=== PATIENT | male | born 1955 | race Caucasian/White ===

== ENCOUNTER 2020-12-11 13:04 | Emergency (ER) | payer MEDICARE ==
[~2020-12-11 13:04] MED LIST: AMARYL 2MG TABLE2 MG PO; ASPIRIN CHEWABL81 MG PO; BUPROPION HCL75 MG PO; CYANOCOBAL1000 MCG/1 INJ; GLUCOPHAGE1000 MG PO; IPRAT-ALBUT 0.5-3 ML INH; JANUVIA100 MG PO; LOPRESSOR50 MG PO; MONTELUKAST SOD10 MG PO; PLAVIX 75 MG TA75 MG PO; PROAIR HFA8.5 GM INH
[2020-12-11 15:02] LABS: HEMOGLOBIN 10.2 gm/dl (14.0-17.5); RED BLOOD COUNT 3.56 M/UL (4.20-5.50); WHITE BLOOD COUNT 9.7 K/UL (4.5-11.0)
[2020-12-11] MEDS ORDERED: OMNICEF 300 MG300 MG PO (17:29)
[2020-12-11] MEDS ORDERED: ERYTHROMYCIN O3.5 GM OU (17:29)
[2020-12-11] MEDS ORDERED: ZITHROMAX250 MG PO (17:29)
== END 2020-12-11 17:45 | disposition home or self-care (01) ==
LOC: ER1 13:04
PROVIDERS: Physician Assistant
DX: J18.9 Pneumonia, unspecified organism (principal); H10.9 Unspecified conjunctivitis; I25.10 Atherosclerotic heart disease of native coronary artery without angina pectoris; I10 Essential (primary) hypertension; E11.9 Type 2 diabetes mellitus without complications; J44.9 Chronic obstructive pulmonary disease, unspecified; F17.200 Nicotine dependence, unspecified, uncomplicated; Z99.81 Dependence on supplemental oxygen; Z88.2 Allergy status to sulfonamides; Z20.822 Contact with and (suspected) exposure to COVID-19
CPT/HCPCS: 0240U; 36415; 71045; 80053; 82550; 82553; 83874; 84484; 85025; 93005; 99284

== ENCOUNTER 2020-12-30 12:22 | Emergency (ER) | payer MEDICARE ==
[~2020-12-30 12:22] MED LIST changes: +ERYTHROMYCIN O3.5 GM OU; +OMNICEF 300 MG300 MG PO; +ZITHROMAX250 MG PO
[2020-12-30 13:17] LABS: HEMOGLOBIN 9.7 gm/dl (14.0-17.5); RED BLOOD COUNT 3.47 M/UL (4.20-5.50); WHITE BLOOD COUNT 9.8 K/UL (4.5-11.0)
[2020-12-30] MEDS ORDERED: LASIX40 MG PO ×2 (17:23→17:25)
[2020-12-30] MEDS ORDERED: ALBUTEROL2.5 MG/3 M INH (17:25)
== END 2020-12-30 18:27 | disposition home or self-care (01) ==
LOC: ER1 12:22
PROVIDERS: Physician Assistant
DX: I50.9 Heart failure, unspecified (principal); J44.9 Chronic obstructive pulmonary disease, unspecified; F17.200 Nicotine dependence, unspecified, uncomplicated; Z20.822 Contact with and (suspected) exposure to COVID-19; Z86.73 Personal history of transient ischemic attack (TIA), and cerebral infarction without residual deficits; Z95.1 Presence of aortocoronary bypass graft; Z88.8 Allergy status to other drugs, medicaments and biological substances; Z88.2 Allergy status to sulfonamides; Z79.82 Long term (current) use of aspirin; Z79.899 Other long term (current) drug therapy
CPT/HCPCS: 0240U; 36415; 71045; 80053; 82550; 82553; 83874; 83880; 84484; 85025; 93005; 96374; 96376; 99285; J1940

== ENCOUNTER → 2021-01-08 | Outpatient (CLI) | payer MEDICARE ==
[~2021-01-08] MED LIST changes: +ALBUTEROL2.5 MG/3 M INH; +LASIX40 MG PO
== END ==
LOC: HEART 5 10:30
DX: I25.10 Atherosclerotic heart disease of native coronary artery without angina pectoris (principal); I50.9 Heart failure, unspecified; R60.9 Edema, unspecified; R93.1 Abnormal findings on diagnostic imaging of heart and coronary circulation; I08.1 Rheumatic disorders of both mitral and tricuspid valves
CPT/HCPCS: 93306

== ENCOUNTER → 2022-05-19 | Outpatient (CLI) | payer MEDICARE | LOC: EXRD 14:29 | DX: M54.50 Low back pain, unspecified (principal); G62.9 Polyneuropathy, unspecified | CPT/HCPCS: 72220 ==

== ENCOUNTER 2022-07-27 14:02 | Emergency (ER) | payer MEDICARE ==
[~2022-07-27] VITALS: Ht 180.3 cm; Wt 77.1 kg
[2022-07-27 14:47] LABS: HEMOGLOBIN 12.2 gm/dl (14.0-17.5); RED BLOOD COUNT 4.16 M/UL (4.20-5.50); WHITE BLOOD COUNT 10.9 K/UL (4.5-11.0)
== END 2022-07-27 22:50 | disposition short-term general hospital (02) ==
LOC: ER1 14:02
PROVIDERS: Physician Assistant Medical
DX: E11.51 Type 2 diabetes mellitus with diabetic peripheral angiopathy without gangrene (principal); I70.202 Unspecified atherosclerosis of native arteries of extremities, left leg; I10 Essential (primary) hypertension; J44.9 Chronic obstructive pulmonary disease, unspecified; F17.210 Nicotine dependence, cigarettes, uncomplicated
CPT/HCPCS: 73630; 80053; 85025; 85652; 85730; 86140; 93005; 93926; 96374; 96375; 96376; 99285; J1170; J1644; J2543